=== PATIENT | female | born 1995 | race American Indian/Alaskan Native ===

== ENCOUNTER 2016-08-17 19:15 | Emergency (ER) | payer MEDICAID, OTHER ==
[2016-08-17 19:26] VITALS: BP 97/80
--- NOTE | 2016-08-17 22:05 | EDM.PDOC ---
{null, ED HPI Skin/Rash - General Chief Complaint: Skin Complaint Stated Complaint: CUT LIP Time Seen by Provider: 08/17/16 19:45 Source: Reports: Patient History Limitations: Reports: No limitations - History of Present Illness INITIAL COMMENTS - FREE TEXT/NARRATIVE: cut inner lip when hit by a ball. - Related Data Allergies Allergy/AdvReac Type Severity Reaction Status Date / Time No Known Allergies Allergy Verified 08/17/16 19:26 Home Meds: Ambulatory Orders Medication Instructions Recorded Confirmed . 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 ED EXAM, SKIN/RASH Exam: See Below Exam Limited By: No limitations General Appearance: alert, WD/WN, mild distress, other (tearful) Ears: hearing grossly normal Throat/Mouth: Normal voice, No airway compromise, Other (1/4" lac' lower inner lip without active bleeding, teeth intact) Head: atraumatic Neck: non-tender, full range of motion Respiratory/Chest: no respiratory distress Cardiovascular: regular rate, rhythm Neurological: alert, oriented, normal cognition, normal gait, no motor/sensory deficits Psychiatric: tearful Skin: Warm, Dry Location, Skin: other (lip) Lymphatic: no adenopathy Course - Vital Signs Last Recorded V/S: Last Vital Signs Temp 36.1 C 08/17/16 19:20 Pulse 80 08/17/16 19:20 Resp 14 08/17/16 19:20 BP 97/80 08/17/16 19:20 Pulse Ox 95 08/17/16 19:20 - Re-Assessments/Exams Free Text/Narrative Re-Assessment/Exam: 08/17/16 22:04 Pt had to leave before further discussion on treatment. unresponsive Pt arrived via EMS. Departure - Departure Time of Disposition: 20:00 Disposition: Left Without Being Seen 07 Condition: good Clinical Impression: Laceration of lip without complication Qualifiers: Encounter type: initial encounter Qualified Code(s): S01.511A - Laceration without foreign body of lip, initial encounter Referrals: Tomer Reyna MD [Primary Care Provider] - Forms: ED Department Discharge }
== END 2016-08-17 20:00 | disposition left against medical advice (07) ==
LOC: DL.ED 19:15
DX: S01.511A Laceration without foreign body of lip, initial encounter (principal); W21.00XA Struck by hit or thrown ball, unspecified type, initial encounter
CPT/HCPCS: 99282

== ENCOUNTER 2017-10-24 15:42 | Emergency (ER) | payer OTHER, MEDICAID ==
[2017-10-24 16:30] VITALS: BP 124/65
[2017-10-24] MEDS ORDERED: Bacitracin Oint 1 GM U/D Packet TOP ONE (16:45)
[2017-10-24] MEDS ORDERED: Lidocaine 1% 30 ML SDV INJECT ONE (16:45)
--- NOTE | 2017-10-24 17:22 | EDM.PDOC ---
ED HPI GENERAL MEDICAL PROBLEM - General Chief Complaint: Skin Complaint Stated Complaint: [id number] OPEN WOUND Time Seen by Provider: 10/24/17 16:55 Source of Information: Reports: Patient History Limitations: Reports: No Limitations - History of Present Illness INITIAL COMMENTS - FREE TEXT/NARRATIVE: This 22 yo female patient reports to the ED with a laceration to her left AC. The patient reports she got her arm cut when taking out the garbage. Onset: Today Duration: Minutes: Location: Reports: Upper Extremity, Left Quality: Reports: Ache, Dull Severity: Moderate Improves with: Reports: None Worsens with: Reports: None Associated Symptoms: Reports: No Other Symptoms Left Lower Arm Pain Score (Numeric/FACES): 7 - Related Data Allergies Allergy/AdvReac Type Severity Reaction Status Date / Time No Known Allergies Allergy Verified 08/17/16 19:26 Home Meds: Home Meds . 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 ED EXAM, SKIN/RASH Exam: See Below Exam Limited By: No Limitations General Appearance: Alert, WD/WN, No Apparent Distress Eye Exam: Bilateral Eye: EOMI, Normal Inspection, PERRL Ears: Normal External Exam, Normal Canal, Hearing Grossly Normal, Normal TMs Nose: Normal Inspection, Normal Mucosa, No Blood Throat/Mouth: Normal Inspection, Normal Lips, Normal Teeth, Normal Voice Head: Atraumatic Neck: Normal Inspection Respiratory/Chest: No Respiratory Distress Cardiovascular: Normal Peripheral Pulses, Regular Rate, Rhythm (Female) Exam: Deferred Rectal (Female) Exam: Deferred Extremities: Arm Pain (left ac laceration) Neurological: Alert, Oriented, CN II-XII Intact Psychiatric: Anxious Skin: Warm, Dry, Wound/Incision Location, Skin: Upper Extremity, Left Characteristics: Linear Lymphatic: No Adenopathy ED SKIN PROCEDURES - Laceration/Wound Repair Left Upper Elbow Lac/Wound length In cm: 1.5 Appearance: Subcutaneous Anesthetic Type: Local Local Anesthesia - Lidocaine (Xylocaine): 1% Plain Skin Prep: Chlorhexidine (Hibiciens) Exploration/Debridement/Repair: Wound Explored, In a Bloodless Field, Explored to Base, No Foreign Material Found Closed with: Sutures Suture Size: 4-0 # of Sutures: 6 Suture Type: Prolene, Interrupted, Simple Drain Placement: No Sterile Dressing Applied: Nurse Tetanus Status Addressed: Yes Complications: No Course - Vital Signs Last Recorded V/S: Last Vital Signs Temp 37.1 C 10/24/17 16:29 Pulse 74 10/24/17 16:29 Resp 18 10/24/17 16:29 BP 124/65 10/24/17 16:29 Pulse Ox 98 10/24/17 16:29 - Orders/Labs/Meds Meds: Medications Discontinued Medications Generic Name Dose Route Start Last Admin Trade Name Tala PRN Reason Stop Dose Admin Bacitracin 1 dose 10/24/17 16:45 Bacitracin Oint 1 Gm TOP 10/24/17 16:46 ONETIME ONE Lidocaine HCl 30 ml 10/24/17 16:45 Xylocaine-Mpf 1% INJECT 10/24/17 16:46 ONETIME ONE Departure - Departure Time of Disposition: 17:27 Disposition: Home, Self-Care 01 Condition: Fair Clinical Impression: Laceration of left elbow Qualifiers: Encounter type: initial encounter Qualified Code(s): S51.012A - Laceration without foreign body of left elbow, initial encounter - Discharge Information Instructions: Laceration Care, Adult, [id number] Care Plan Goals: The patient was advised of the examination results during the visit. The wound margins were well approximated during the visit. The patient should keep the area clean and dry over the next 24 hours. The patient should have the sutures removed in about 14 days. If the patient has any additional symptoms or concerns , the patient should follow-up with her primary care facility or return to the emergency department.
== END 2017-10-24 17:33 | disposition home or self-care (01) ==
LOC: DL.ED 15:42
DX: S51.012A Laceration without foreign body of left elbow, initial encounter (principal); F17.210 Nicotine dependence, cigarettes, uncomplicated; W45.8XXA Other foreign body or object entering through skin, initial encounter; Y93.89 Activity, other specified
CPT/HCPCS: 12001; 99283

== ENCOUNTER 2025-01-10 17:19 | Observation (INO) | payer MEDICAID ==
[2025-01-10] MEDS ORDERED: Lactated Ringers 1,000 ML IV ONE (17:47)
[2025-01-10] MEDS ORDERED: Carboprost Tromethamine 250 MCG/1 ML Amp IM PRN (17:47)
[2025-01-10] MEDS ORDERED: Ondansetron 4 MG/2 ML SDV IVPUSH PRN (17:47)
[2025-01-10] MEDS ORDERED: Sodium Chloride 0.9% 10 ML Syringe FLUSH PRN (17:47)
[2025-01-10] MEDS ORDERED: Oxytocin/Lactated Ringers 30 UNIT/500 ML BAG IV SCH (18:00)
[2025-01-10] MEDS ORDERED: Lactated Ringers 1,000 ML IV SCH (18:00)
[2025-01-10] MEDS ORDERED: Oxytocin/Normal Saline 30 UNIT/500 ML BAG IV SCH (18:00)
[2025-01-10 18:01] LABS: PLATELET COUNT,PLT 255.0 10^3/uL (150-450); RED BLOOD CELL COUNT 4.08 10^6/uL (4.2-5.4); WHITE BLOOD CELL COUNT,WBC 13.1 10^3/uL (5.0-10.0)
[2025-01-10 19:08] VITALS: BP 91/64; PULSE 70
== END 2025-01-10 21:18 | disposition home or self-care (01) ==
LOC: DL.OBCHECK 17:19 → DL.OB 17:47
PROVIDERS: ADMIT Family Medicine; ATTEND Family Medicine
DX: O42.913 Preterm premature rupture of membranes, unspecified as to length of time between rupture and onset of labor, third trimester (principal); O23.593 Infection of other part of genital tract in pregnancy, third trimester; B96.89 Other specified bacterial agents as the cause of diseases classified elsewhere; Z3A.36 36 weeks gestation of pregnancy; Z79.899 Other long term (current) drug therapy
CPT/HCPCS: 36415; 82274; 84112; 85027; 87210; A9270-GY; G0378

== ENCOUNTER 2025-01-31 01:59 | Observation (INO) | payer BC, MEDICAID ==
[2025-01-31] MEDS ORDERED: Ondansetron 4 MG/2 ML SDV IVPUSH PRN (07:32)
[2025-01-31] MEDS ORDERED: Sodium Chloride 0.9% 10 ML Syringe FLUSH PRN (07:32)
[2025-01-31] MEDS ORDERED: Carboprost Tromethamine 250 MCG/1 ML Amp IM PRN (07:32)
[2025-01-31] MEDS ORDERED: Oxytocin/Lactated Ringers 30 UNIT/500 ML BAG IV SCH (07:45)
[2025-01-31 08:37] LABS: PLATELET COUNT,PLT 256.0 10^3/uL (150-450); RED BLOOD CELL COUNT 3.94 10^6/uL (4.2-5.4); WHITE BLOOD CELL COUNT,WBC 9.9 10^3/uL (5.0-10.0)
[2025-01-31] MEDS: Lactated Ringers 1,000 ML IV SCH (08:58)
[2025-01-31] MEDS: Oxytocin/Normal Saline 30 UNIT/500 ML BAG IV SCH (08:58)
[2025-01-31] MEDS: Lactated Ringers 1,000 ML IV ONE (10:30)
[2025-01-31] MEDS ORDERED: ePHEDrine 50 MG/ML SDV IVPUSH PRN (10:50)
[2025-01-31] MEDS ORDERED: Ropivacaine 200 MG in Premix Bag 1 BAG EPIDUR SCH (11:00)
[2025-01-31] MEDS ORDERED: Oxytocin 10 Units/1 ML SDV IM PRN (14:09)
[2025-01-31] MEDS: Witch Hazel Medicated Pads 100/Jar TOP PRN (17:55)
[2025-01-31] MEDS: Benzocaine/Menthol 20%-0.5% Spray 78 GM Cannister TOP PRN (17:55)
[2025-02-01] MEDS: Prenatal Multivitamin with Calcium/Folic Acid/Iron Tab PO SCH (07:13)
[2025-02-01 14:34] LABS: PLATELET COUNT,PLT 227.0 10^3/uL (150-450); RED BLOOD CELL COUNT 3.91 10^6/uL (4.2-5.4); WHITE BLOOD CELL COUNT,WBC 10.5 10^3/uL (5.0-10.0)
[2025-02-02 09:33] VITALS: BP 106/54; PULSE 64
== END 2025-02-02 13:45 | disposition home or self-care (01) ==
LOC: DL.OB 07:59
PROVIDERS: ADMIT Family Medicine; ATTEND Family Medicine
DX: O80 Encounter for full-term uncomplicated delivery (principal); O99.013 Anemia complicating pregnancy, third trimester; D64.9 Anemia, unspecified; Z3A.39 39 weeks gestation of pregnancy; Z79.899 Other long term (current) drug therapy
CPT/HCPCS: 36415; 51702; 59409; 85027; A9270; J2590; J7120